=== PATIENT | male | born 1955 | race Caucasian/White ===

== ENCOUNTER 2022-07-24 16:05 | Emergency (ER) | payer MEDICARE, SELFPAY ==
[2022-07-24] VITALS (10 sets, daily range): BP systolic 170–179; BP diastolic 93–105; PULSE 60–82; RESP 16–22; TEMP 36.5–36.6; O2SAT 96–100; BMI 20.7
--- NOTE | 2022-07-24 16:23 | ECG_ITS ---
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 Measurements Intervals Ages [place] Rate: 71 P: 79 OK: 145 QRS: -56 QRSD: 111 T: 67 QT: 458 QTc: 498 Interpretive Statements SINUS RHYTHM WITH SINUS ARRHYTHMIA POSSIBLE LEFT ATRIAL ENLARGEMENT [-0.1mV P-WAVE IN V1/V2] INCOMPLETE RIGHT BUNDLE BRANCH BLOCK [90+ ms QRS DURATION, TERMINAL R IN V1/V2, 40+ ms S IN I/aVL/V4/V5/V6] LEFT ANTERIOR FASCICULAR BLOCK [QRS AXIS <= -45, QR IN I, RS IN II] PROBABLE ANTEROLATERAL MYOCARDIAL INFARCTION , OF INDETERMINATE AGE [35 ms Q WAVE IN I/aVL/V3-V6] No previous ECG available for comparison Electronically Signed On 07-24-2022 21:31:05 CDT by Paul Owens M.D. [id number] lima
--- NOTE | 2022-07-24 16:25 | ED_ITS ---
HPI - General Adult General: Chief complaint: Abdominal Pain Stated complaint: Stomach pains, blacking out Time Seen by Provider: 07/24/22 16:23 History of Present Illness: Patient is a 67-year-old male with no significant past medical history presenting to the emergency room with significant onset of midepigastric/periumbilical abdominal pain for the last hour. Patient was reportedly writhing upon waking up with significant pain. Patient's family drove him to the emergency room. Patient denies have any nausea/vomiting fever/chills, diarrhea melena hematochezia. Patient had 1 episode of spit up and was coughing up clear phlegm. Family denies any fever/cough, runny nose/so re throat. Onset: 1hr ago Duration:1 hr Location: home Severity:moderate/severe Associated symptoms: Deny chest pain, dyspnea, nausea, rash, palpitations or vomiting Review of Systems Const: Denies: fever(s) or chills Eyes: Denies: change in vision ENMT: Denies: mouth pain Card: Denies: chest pain or palpitations Resp: Denies: dyspnea or non-productive cough GI: Reports: abdominal pain; Denies: nausea, vomiting or diarrhea : Denies: dysuria Musc: Denies: extremity pain Skin/Breast: Denies: rash or new lesions Neuro: Denies: weakness in extremities Psych: Reports: other (Normal mood) Guido/Lymph: Denies: easy bruising [facility] ED PFSH: Medical History Abdominal pain Social History Smoking and tobacco status: current every day smoker Alcohol intake: never Substance/Drug Use: current Substance/Drug use type: Marijuana Physical Exam Const: COMMON NORMALS: alert HENMT: COMMON NORMALS: atraumatic HEAD & SCALP: atraumatic MOUTH: moist mucous membranes not abnormal Eye: COMMON NORMALS: EOMs intact bilaterally and conjunctivae normal CONJUNCTIVA: Yes conjunctivae normal Neck/C-Spine: COMMON NORMALS: full ROM and supple Resp: COMMON NORMALS: normal respiratory effort and clear to auscultation bilaterally AUSCULTATION: clear to auscultation bilaterally Cardio: COMMON NORMALS: regular rate RATE: regular rate GI: COMMON NORMALS: Soft to palpation PALPATION: Yes Soft to palpation OTHER: +diffuse abd TTP. +Voluntary guarding. NO guarding rebound, guarding, rigidity. No CVA tenderness to percussion. Neg Lee/Neg McBurney's point tenderness, no suprabupic tenderness to palpation. Extremity: COMMON NORMALS: full ROM Neuro: SENSORIUM/ORIENTATION: Yes alert MOTOR EXAM: No Abnormal motor strength present and Other motor observations present (no focal motor deficits) Psych: COMMON NORMALS: speech normal SPEECH: Yes normal speech MOOD & AFFECT: Yes euthymic mood Course Vital Signs: Vital signs: Vital Signs Temperature 97.9 F 07/24/22 21:00 Pulse Rate 64 07/24/22 21:00 Respiratory Rate 18 07/24/22 21:00 Blood Pressure 174/93 07/24/22 21:00 Pulse Oximetry 97 07/24/22 21:00 Oxygen Delivery Me thod 07/24/22 20:46 MDM - General Adult Medical Decision Making Patient is a 67-year-old male with no significant past medical history presenting to the emergency room with significant onset of midepigastric/periumbilical abdominal pain for the last hour. Patient was reportedly writhing upon waking up with significant pain. On physical exam, pat ient is hemodynamically stable. Patient has diffuse abdominal tenderness palpation. +voluntary guarding. No involuntary guarding or rebound tenderness. Patient's white count 23.3. Patient has mild anion gap. Lactic acid of 6. CT abdomen pelvis showed extensive inflammatory changes in the small bowel and in the mid to lower abdominal associate with mesenteric edema/inflammation. There is no signs of free air. Patient received 30 cc/kg of IVF and Zosyn in the ER. I discussed case immediately with Dr. Jacinto Pain appears to be controlled with multiple doses of opiate medication. Dr. Snyder recommended at this time to transfer patient for close monitoring of this could be inflammatory bowel disease vs early ischemic findings. Case was discussed with Dr. Jacob from [facility] ICU who agreed with the transfer to [facility] for GI evaluation and possible vascular/gen surgery i nvolvement. Disposition: Transfer to outside hospital Lab Data : 07/24/22 16:31 07/24/22 16:31 Radiology Impressions Chest X-Ray 07/24/22 16:23 IMPRESSION: 1. No acute cardiopulmonary process. 2. No free intraperitoneal air on chest radiograph. CT scan of the abdomen/pelvis may be obtained for further evaluation as clinically indicated.. 3. Incidental/nonacute findings are listed in the report. Abdomen/Pelvis CTA 07/24/22 16:50 IMPRESSION: 1. Extensive inflammatory change involving the small bowel in the mid and lower abdomen with wall thickening and associated mesenteric edema/inflammation. No pneumatosis. Findings are suspicious for enteritis of ischemic, inflammatory, or infectious nature. Recommend clinical correlation. 2. Atherosclerotic disease. 50% stenosis in the proximal right and left internal iliac arteries. No occlusion, thrombosis, extravasation, dissection, or aneurysm. 3. 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 4. Incidental/nonacute findings are listed in the report. ADDENDUM: 07/24/22 1851 Please note the addendum to the original report: No evidence for arterial occlusions in the abdomen or pelvis. Evaluation of the veins is limited however due to the phase of contrast enhancement. THIS REPORT CONTAINS FINDINGS THAT MAY BE CRITICAL TO PATIENT CARE. The findings were verbally communicated via telephone conference with KUSHAL Gutierrez at 6:49 PM CDT on 07/24/2022. The findings were acknowledged and understood. Laboratory Results WBC 23.3 10^3/uL (4.0-10.0) H 07/24/22 16:31 RBC 4.22 10^6/uL (4.1-5.3) 07/24/22 16:31 Hgb 14.3 g/dL (11.7-16.6) 07/24/22 16:31 Hct 41.9 % (42.0-52.0) L 07/24/22 16:31 MCV 99.3 fl (80-94) H 07/24/22 16:31 MCH 33.9 pg (28.0-34.0) 07/24/22 16: MCHC 34.1 g/dL (30.0-36.0) 07/24/22 16: RDW 13.2 % (12.1-15.1) 07/24/22 16:31 Plt Count 298 10^3/cmm (130-400) 07/24/22 16:31 MPV 9.9 fL (7.4-10.4) 07/24/22 16:31 Neut % (Auto) 76.4 % 07/24/22 16:31 Lymph % (Auto) 14.6 % 07/24/22 16:31 Curry % (Auto) 6.7 % 07/24/22 16:31 Eos % (Auto) 0.8 % 07/24/22 16:31 Baso % (Auto) 0.6 % 07/24/22 16:31 Neut # (Auto) 17.81 10^3/uL (1.8-7.7) H 07/24/22 16:31 Lymph # (Auto) 3.4 10^3/uL (0.8-4.8) 07/24/22 16:31 Curry # (Auto) 1.6 10^3/uL (0.2-0.9) H 07/24/22 16:31 Eos # (Auto) 0.2 10^3/uL (0.0-0.8) 07/24/22 16:31 Baso # (Auto) 0.2 10^3/uL (0.0-0.1) H 07/24/22 16:31 Nucleated RBC % (auto) 0 % 07/24/22 16:31 Nucleated RBCs # 0.0 /100WBC 07/24/22 16:31 Sodium 139 mmol/L (136-145) 07/24/22 16:31 Potassium 3.5 mmol/L (3.5-5.1) 07/24/22 16:31 Chloride 98 mmol/L (98-107) 07/24/22 16:31 Carbon Dioxide 19 mmol/L (22-29) L 07/24/22 16:31 Anion Gap 25.5 (5-19) H 07/24/22 16:31 BUN 18 mg/dL (8-23) 07/24/22 16:31 Creatinine 0.8 mg/dL (0.7-1.2) 07/24/22 16:31 GFR Calculation 96.7 mL/min (90-130) 07/24/22 16:31 Glucose 175 mg/dL (65-115) H 07/24/22 16:31 Calculated Osmolality 294 mOsm/kg (285-295) 07/24/22 16:31 Lactate 2.1 mmol/L (0.5-2.2) 07/24/22 19:33 Calcium 9.7 mg/dL (8.5-10.5) 07/24/22 16:31 Total Bilirubin 0.3 mg/dL (0.15-1.2) 07/24/22 16:31 AST 21 U/L (0-40) 07/24/22 16:31 ALT 17 U/L (0-41) 07/24/22 16:31 Alkaline Phosphatase 76 U/L (40-130) 07/24/22 16:31 Troponin T Baseline 9 ng/L (0-15) 07/24/22 16:31 Troponin T 120 Minute 8.98 ng/L (0-15) 07/24/22 18:09 Delta Troponin T -0.02 ABS# (0-10) L 07/24/22 18:09 Total Protein 7.2 g/dL (6.6-8.7) 07/24/22 16:31 Albumin 4.7 g/dL (3.5-5.2) 07/24/22 16:31 Globulin 2.5 g/dL (1.3-4.6) 07/24/22 16:31 Lipase 14 U/L (13-60) 07/24/22 16:31 Urine Color Yellow (Yellow) 07/24/22 18:15 Urine Appearance Clear (CLEAR) 07/24/22 18:15 Urine pH 7 (5-7) 07/24/22 18:15 Ur Specific [place] 1.015 (1.005-1.030) 07/24/22 18:15 Urine Protein Neg (Negative) 07/24/22 18:15 Urine Glucose (UA) Trace (Normal) H 07/24/22 18:15 Urine Ketones 2+ (Negative) H 07/24/22 18:15 Urine Blood Neg (Negative) 07/24/22 18:15 Urine Nitrate Negative (Negative) 07/24/22 18:15 Urine Bilirubin Neg (Negative) 07/24/22 18:15 Urine Urobilinogen Norm mg/dL (Negative) 07/24/22 18:15 Ur Leukocyte Esterase Negative (Negative) 07/24/22 18:15 Imaging Data Other Imaging: Radiologist's impression: [address] [place] [address] CT Scan Report Signed with Addenda Patient: Sukh Jang Miguel Unit #: [id number] : 1955 Age/Sex: 67 / M ADM Date: 07/24/22 Loc: ER Room/Bed: Attending Dr: Ordering Provider/Ordering MD: Kushal Chapa MD Date of Service: 07/24/22 Procedure(s): CT angio abdomen pelvis 51685 Accession Number(s): [id number] Report Number: [id number]/CT angio abdomen pelvis 60658 Please note the addendum to the original report:? No evidence for arterial occlusions in the abdomen or pelvis. Evaluation of the veins is limited however due to the phase of contrast enhancement. ? THIS REPORT CONTAINS FINDINGS THAT MAY BE CRITICAL TO PATIENT CARE. The findings were verbally communicated via telephone conference with KUSHAL Gutierrez at 6:49 PM CDT on 07/24/2022. The findings were acknowledged and understood. ? Addendum Dictated By: ?Lindsey Mensah MD Addendum Signed By: ?Lindsey Mensah MD Signed Date/Time: 07/24/221850 Addendum Cosigned By: ? PROCEDURE INFORMATION: Exam: CTA Abdomen and Pelvis With Contrast Exam date and time: 07/24/2022 5:44 PM Age: 67 years old Clinical indication: Abdominal pain; Acute; Additional info: Abd pain, 10 out of 10 with shaking and near syncope spells TECHNIQUE: Imaging protocol: Computed tomographic angiography of the abdomen and pelvis with contrast. 3D rendering (Not supervised by radiologist): MIP and/or 3D reconstructed images were created by the technologist. Radiation optimization: All CT scans at this facility use at least one of these dose optimization techniques: automated exposure control; mA and/or kV adjustment per patient size (includes targeted exams where dose is matched to clinical indication); or iterative reconstruction. Contrast material: OMNIPAQUE 350; Contrast volume: 80 ml; Contrast route: INTRAVENOUS (IV);? COMPARISON: CR (CHEST, ) 07/24/2022 5:02 PM RADIATION DOSE METRICS: Total DLP (mGy-cm): 439.65 FINDINGS: Lungs: Visualized lungs are clear. Pleural spaces: No pleural effusion. Heart: Stable mild enlargement of the visualized portions of the heart. Aorta: Moderate to severe calcified and mild noncalcified plaque. No occlusion, thrombosis, stenosis, extravasation, dissection, or aneurysm. Celiac trunk and mesenteric arteries: Mild calcified plaque. No occlusion, thrombosis, stenosis, extravasation, dissection, or aneurysm. Renal arteries: Mild calcified plaque. No occlusion, thrombosis, stenosis, extravasation, dissection, or aneurysm. Right iliac arteries: Moderate to severe calcified and noncalcified plaque. 50% stenosis in the proximal right internal iliac artery. No occlusion, thrombosis, extravasation, dissection, or aneurysm. Left iliac arteries: Moderate to severe calcified and noncalcified plaque. 50% stenosis in the proximal right internal iliac artery. No occlusion, thrombosis, extravasation, dissection, or aneurysm. Liver: Simple cyst in the left lobe of the liver measuring 2.3 cm (series 4, image 34). Gallbladder and bile ducts: The gallbladder is unremarkable. No biliary ductal dilatation. Pancreas: The pancreas is unremarkable. No pancreatic ductal dilatation. Spleen: Heterogenous enhancement of the spleen, likely due to phase of contrast enhancement. Adrenal glands: The right and left adrenal glands are unremarkable. Kidneys and ureters: The right kidney is unremarkable. Simple cyst in the left kidney measuring 1.5 cm. The right and left ureters are unremarkable. Stomach and bowel: Moderate gastric distention with a large air-fluid level in the stomach. Extensive inflammatory change involving the small bowel in the mid and lower abdomen with wall thickening and associated mesenteric edema/inflammation. No pneumatosis. Appendix: Appendix not definitely visualized. No inflammatory changes in the pericecal region however. Intraperitoneal space: Small volume ascites. No free intraperitoneal air. No loculated fluid collections to suggest an abscess. Lymph nodes: No lymphadenopathy. Urinary bladder: The bladder is unremarkable. Reproductive: The prostate gland is mildly enlarged. Nonspecific parenchymal calcifications in the prostate gland. Bones/joints: Degenerative changes in the spine, sacroiliac joints, and hips. Soft tissues: No acute abnormality in the extra-abdominal soft tissues. CT/CT angio abdomen pelvis 94694 IMPRESSION: 1. Extensive inflammatory change involving the small bowel in the mid and lower abdomen with wall thickening and associated mesenteric edema/inflammation. No pneumatosis. Findings are suspicious for enteritis of ischemic, inflammatory, or infectious nature. Recommend clinical correlation. 2. Atherosclerotic disease. 50% stenosis in the proximal right and left internal iliac arteries. No occlusion, thrombosis, extravasation, dissection, or aneurysm. 3. 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 4. Incidental/nonacute findings are listed in the report. ? Dictated By: Lindsey Mensah MD Signed By: Lindsey Mensah MD Signed Date/Time: 07/24/22 1820 DD/ [address] [address] XRay Report Signed Patient: Sukh Jang Unit #: [id number] : 1955 Age/Sex: 67 / M ADM Date: 07/24/22 Loc: ER Room/Bed: Attending Dr: Ordering Provider/Ordering MD: Kushal Chapa MD Date of Service: 07/24/22 Procedure(s): XR chest 1V portable [id number] Accession Number(s): [id number] Report Number: [id number] PROCEDURE INFORMATION: Exam: XR Chest Exam date and time: 07/24/2022 5:02 PM Age: 67 years old Clinical indication: Other: Upper abdominal pain; Evaluate for free air; Additional info: Upper abd pain, eval free iar TECHNIQUE: Imaging protocol: Radiologic exam of the chest. Views: 1 view. COMPARISON: No relevant prior studies available. FINDINGS: Lungs: Lungs are clear bilaterally. Pleural spaces: No pleural effusion. No pneumothorax. Heart/Mediastinum: The cardiac silhouette is mildly enlarged. Mediastinal contours are unremarkable. Vasculature: Vascular calcifications in the aorta. Bones/joints: Unremarkable for age. Intraperitoneal space: No free intraperitoneal air on chest radiograph. XR/XR chest 1V portable 91812 IMPRESSION: 1. No acute cardiopulmonary process. 2. No free intraperitoneal air on chest radiograph. CT scan of the abdomen/pelvis may be obtained for further evaluation as clinically indicated.. 3. Incidental/nonacute findings are listed in the report. ? Dictated By: Lindsey Mensah MD Signed By: Lindsey Mensah MD Signed Date/Time: 07/24/22 1729 DD/ 1702 Discharge Plan Discharge Patient Disposition: Other Inst w Plan Readm Condition: Stable Prescriptions: No Action chlorzoxazone 500 mg tablet 500 mg PO QID PRN (Reason: Pain) Aspir-81 81 mg Tablet,Delayed Release (Dr/Ec) 81 mg PO DAILY trazodone 100 mg tablet 100 mg PO BEDTIME mirtazapine 15 mg tablet 15 mg PO DAILY Men's 50 Plus Daily Formula 400-20-370 mcg Tablet 1 tab PO DAILY Referrals: Natan Arce MD [Primary Care Provider] - Coding Level of Care Code ED Instructional Support Specialist for Chg Fwd Exam Comprehensive
[2022-07-24 16:34] LABS: Basophils # 0.2 10^3/uL (0.0-0.1); Basophils % 0.6 %; Eosinophils # 0.2 10^3/uL (0.0-0.8); Eosinophils % 0.8 %; Hematocrit 41.9 % (42.0-52.0); Hemoglobin 14.3 g/dL (11.7-16.6); Lymphocytes # 3.4 10^3/uL (0.8-4.8); Lymphocytes % 14.6 %; Mean Corpuscular HGB Conc 34.1 g/dL (30.0-36.0); Mean Corpuscular Hemoglobin 33.9 pg (28.0-34.0); Mean Corpuscular Volume 99.3 fl (80-94); Mean Platelet Volume 9.9 fL (7.4-10.4); Monocytes # 1.6 10^3/uL (0.2-0.9); Monocytes % 6.7 %; Neutrophils # 17.81 10^3/uL (1.8-7.7); Neutrophils % 76.4 %; Nucleated Red Blood Cells % 0 %; Platelet Count 298 10^3/cmm (130-400); Red Blood Count 4.22 10^6/uL (4.1-5.3); Red Cell Distribution Width 13.2 % (12.1-15.1); White Blood Count 23.3 10^3/uL (4.0-10.0)
--- NOTE | 2022-07-24 16:50 | CTR_ITS ---
PROCEDURE INFORMATION: Exam: CTA Abdomen and Pelvis With Contrast Exam date and time: 07/24/2022 5:44 PM Age: 67 years old Clinical indication: Abdominal pain; Acute; Additional info: Abd pain, 10 out of 10 with shaking and near syncope spells TECHNIQUE: Imaging protocol: Computed tomographic angiography of the abdomen and pelvis with contrast. 3D rendering (Not supervised by radiologist): MIP and/or 3D reconstructed images were created by the technologist. Radiation optimization: All CT scans at this facility use at least one of these dose optimization techniques: automated exposure control; mA and/or kV adjustment per patient size (includes targeted exams where dose is matched to clinical indication); or iterative reconstruction. Contrast material: OMNIPAQUE 350; Contrast volume: 80 ml; Contrast route: INTRAVENOUS (IV); COMPARISON: CR (CHEST, ) 07/24/2022 5:02 PM RADIATION DOSE METRICS: Total DLP (mGy-cm): 439.65 FINDINGS: Lungs: Visualized lungs are clear. Pleural spaces: No pleural effusion. Heart: Stable mild enlargement of the visualized portions of the heart. Aorta: Moderate to severe calcified and mild noncalcified plaque. No occlusion, thrombosis, stenosis, extravasation, dissection, or aneurysm. Celiac trunk and mesenteric arteries: Mild calcified plaque. No occlusion, thrombosis, stenosis, extravasation, dissection, or aneurysm. Renal arteries: Mild calcified plaque. No occlusion, thrombosis, stenosis, extravasation, dissection, or aneurysm. Right iliac arteries: Moderate to severe calcified and noncalcified plaque. 50% stenosis in the proximal right internal iliac artery. No occlusion, thrombosis, extravasation, dissection, or aneurysm. Left iliac arteries: Moderate to severe calcified and noncalcified plaque. 50% stenosis in the proximal right internal iliac artery. No occlusion, thrombosis, extravasation, dissection, or aneurysm. Liver: Simple cyst in the left lobe of the liver measuring 2.3 cm (series 4, image 34). Gallbladder and bile ducts: The gallbladder is unremarkable. No biliary ductal dilatation. Pancreas: The pancreas is unremarkable. No pancreatic ductal dilatation. Spleen: Heterogenous enhancement of the spleen, likely due to phase of contrast enhancement. Adrenal glands: The right and left adrenal glands are unremarkable. Kidneys and ureters: The right kidney is unremarkable. Simple cyst in the left kidney measuring 1.5 cm. The right and left ureters are unremarkable. Stomach and bowel: Moderate gastric distention with a large air-fluid level in the stomach. Extensive inflammatory change involving the small bowel in the mid and lower abdomen with wall thickening and associated mesenteric edema/inflammation. No pneumatosis. Appendix: Appendix not definitely visualized. No inflammatory changes in the pericecal region however. Intraperitoneal space: Small volume ascites. No free intraperitoneal air. No loculated fluid collections to suggest an abscess. Lymph nodes: No lymphadenopathy. Urinary bladder: The bladder is unremarkable. Reproductive: The prostate gland is mildly enlarged. Nonspecific parenchymal calcifications in the prostate gland. Bones/joints: Degenerative changes in the spine, sacroiliac joints, and hips. Soft tissues: No acute abnormality in the extra-abdominal soft tissues. CT/CT angio abdomen pelvis 13285 IMPRESSION: 1. Extensive inflammatory change involving the small bowel in the mid and lower abdomen with wall thickening and associated mesenteric edema/inflammation. No pneumatosis. Findings are suspicious for enteritis of ischemic, inflammatory, or infectious nature. Recommend clinical correlation. 2. Atherosclerotic disease. 50% stenosis in the proximal right and left internal iliac arteries. No occlusion, thrombosis, extravasation, dissection, or aneurysm. 3. 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 4. Incidental/nonacute findings are listed in the report.
[2022-07-24 17:03] LABS: Lactate (Lactic Acid level) 6.5 mmol/L (0.5-2.2)
[2022-07-24 17:04] LABS: Troponin(5th) Baseline 9 ng/L (0-15)
[2022-07-24 17:06] LABS: Alanine Aminotransferase 17 U/L (0-41); Albumin Level 4.7 g/dL (3.5-5.2); Alkaline Phosphatase 76 U/L (40-130); Aspartate Amino Transferase 21 U/L (0-40); Blood Urea Nitrogen 18 mg/dL (8-23); Calcium 9.7 mg/dL (8.5-10.5); Carbon Dioxide 19 mmol/L (22-29); Chloride 98 mmol/L (98-107); Creatinine Clr Calc Pharmacy 90.0698; Globulin 2.5 g/dL (1.3-4.6); Glomerular Filtration Rate 96.7 mL/min (90-130); Glucose 175 mg/dL (65-115); Lipase 14 U/L (13-60); Osmolality Calculated 294 mOsm/kg (285-295); Sodium 139 mmol/L (136-145); Total Bilirubin 0.3 mg/dL (0.15-1.2); Total Protein 7.2 g/dL (6.6-8.7)
[2022-07-24 17:09] LABS: Anion Gap 25.5 (5-19); Potassium 3.5 mmol/L (3.5-5.1)
[2022-07-24] MEDS: morphine 4 mg/mL SDV 1 mL 2 MG IVP (17:09)
[2022-07-24] MEDS: sodium chloride 0.9% 1,000 ML 999 ML IV ×2 (17:10→19:21)
--- NOTE | 2022-07-24 18:23 | ECG_ITS ---
[facility] Test Date: 2022-07-24 Pat Name: Sukh Jang Department: Room: Gender: Male Verification Rep: : 1955 Requested By: Kushal Chapa Order Number: [id number] Bianca MD: Paul Owens M.D. Measurements Intervals [place] Rate: 59 P: 74 OH: 143 QRS: -59 QRSD: 120 T: 49 QT: 493 QTc: 492 Interpretive Statements SINUS BRADYCARDIA POSSIBLE LEFT ATRIAL ENLARGEMENT [-0.1mV P-WAVE IN V1/V2] RIGHT BUNDLE BRANCH BLOCK [120+ ms QRS DURATION, UPRIGHT V1, 40+ ms S IN I/aVL/V4/V5/V6] LEFT ANTERIOR FASCICULAR BLOCK [QRS AXIS <= -45, QR IN I, RS IN II] POSSIBLE ANTERIOR MYOCARDIAL INFARCTION , OF INDETERMINATE AGE [30 ms Q WAVE IN V3/V4, OR R < 0.2 mV IN V4] Compared to ECG 07/24/2022 16:27:04 Right bundle-branch block now present Sinus rhythm no longer present Sinus arrhythmia no longer present Incomplete right bundle-branch block no longer present Myocardial infarct finding still present Electronically Signed On 07-24-2022 21:31:10 CDT by Paul Owens M.D. [id number]
[2022-07-24 18:28] LABS: Add Urine Microscopic? NO; Charge for UA Resulting for Rev
[2022-07-24] MEDS: morphine 4 mg/mL SDV 1 mL IVP (18:29)
[2022-07-24 18:31] LABS: Troponin 5 2HR 8.98 ng/L (0-15)
[2022-07-24 18:32] LABS: Bilirubin Urine Neg (Negative); Blood Urine Neg (Negative); Glucose Urine UA Trace (Normal); Ketones Urine 2+ (Negative); Leukocyte Esterase Urine Negative (Negative); Nitrate Urine Negative (Negative); Protein Urine Neg (Negative); Specific Gravity, Urine 1.015 (1.005-1.030); Urine Appearance Clear (CLEAR); Urine Color Yellow (Yellow); Urobilinogen Urine Norm (Negative); pH Urine 7 (5-7)
[2022-07-24 18:33] LABS: Troponin 5 2HR Delta -0.02 ABS# (0-10)
[2022-07-24] MEDS: piperacillin-tazobactam 4.5 GM in sodium chloride 0.9% (plus) 50 ML IV (18:40)
[2022-07-24] MEDS: HYDROmorphone 1 mg/mL INJ 1 mL 0.5 MG IVP (19:19)
[2022-07-24] MEDS: ondansetron 2 mg/ML SDV 2 mL 4 MG IVP (19:34)
[2022-07-24 19:54] LABS: Lactate (Lactic Acid level) 2.1 mmol/L (0.5-2.2)
[2022-07-24] MEDS: HYDROmorphone 1 mg/mL INJ 1 mL IVP (20:45)
[2022-07-24] MEDS: fentaNYL 50 mcg/mL INJ 2mL 100 MCG IVP (22:12)
== END 2022-07-24 22:57 | disposition other institution, planned readmission (95) ==
PROVIDERS: Emergency Provider Emergency Medicine; PCP Family Medicine
DX: R10.9 Unspecified abdominal pain (principal); Z79.82 Long term (current) use of aspirin; F17.210 Nicotine dependence, cigarettes, uncomplicated
CPT/HCPCS: 71045; 74174; 80053; 81003; 83605; 83690; 84484; 85025; 93005; 96365; 96375; 96376; 99285; J1170; J2270; J2405; J2543; J3010; J7030; Q9967

== ENCOUNTER 2022-11-20 06:49 | Outpatient (CLI) | payer MEDICARE, SELFPAY ==
--- NOTE | 2022-11-20 07:13 | MR_ITS ---
WS: [id number] MRI BRAIN WITH AND WITHOUT CONTRAST HISTORY: MEMORY LOSS COMPARISON: None available. TECHNIQUE: Multiplanar imaging performed through the brain with MultiHance 13 ml's IV. No acute infarcts are seen. Petersen-white matter differentiation is well preserved. Mild atrophy and mil d, very minimal small vessel ischemic disease. No prior infarct. No susceptibility artifacts or prior lacunar infarcts. Ventricles and extra-axial spaces are normal. Clivus and pituitary gland are normal. Visualized posterior fossa and brainstem are also normal. Postcontrast images are negative for masses or vascular malformations. Dural venous sinuses are normal. Paranasal sinuses: Well aerated with no significant disease. Mastoid air cells: Normal. Calvarium and scalp: No calvarial abnormality. There is a soft tissue, nonenhancing mass conforming t o the soft tissue over the LEFT temporal bone measuring 3.8 x 1.5 cm and extending over a length of 4 .7 cm. This is just superficial to the LEFT parotid gland and does not enhance. Increased signal on t he T2 sequences and increased on the T1 weighted sequences. This does suppress on some of the fat sup pressed images. Benign in appearance. MR/MR head wo/w con [id number] IMPRESSION: 1. No acute hemorrhage. No infarct. 2. Very minimal cerebral atrophy. 3. No enhancing masses. 4. There is a nonenhancing very superficial soft tissue mass over the LEFT tem poral bone. Probably representing a cyst with increased protein content or jakob gn fatty tumor. This can be further evaluated by ultrasound if this is a new fi nding. This may have been present for a long time.
[2022-11-20] MEDS: gadobenate dimeglumine 20 mL vial IV (08:31)
== END 2022-11-20 06:50 | disposition home or self-care (01) ==
LOC: RAD 06:51
PROVIDERS: PCP Family Medicine; Visit Provider Family Medicine
DX: R41.3 Other amnesia (principal)
CPT/HCPCS: 70553; A9577

== ENCOUNTER 2025-04-09 09:46 | Outpatient (CLI) | payer MEDICARE, SELFPAY ==
--- NOTE | 2025-04-09 09:53 | CT_ITS ---
WS: [id number] LDCT LUNG CANCER SCREENING HISTORY: NICOTINE DEPENDENCE,CIGARETTES TECHNIQUE: Axial imaging performed from the apices to 1 cm below the costophrenic angles. Coronal and sagittal reformats are submitted with axial MIP series. All CT scans at [facility] use at least one of these dose optimization techniques: automated exposure control; mA and/or kV adjustment per patient size (includes targeted exams where dose is matched to clinical indication); or iterative reconstruction. DLP: 58.77 mGy.cm DIvol: Mean CTDIvol: 0.80 (mGy) COMPARISON: None available. Diagnostic quality: Satisfactory Lungs: Moderate pulmonary hyperexpansion. Biapical pleural fibrosis and scarring. No pulmonary mass or nodule. No pneumonia. No endobronchial lesions. Heart: Very mild cardiomegaly.. Other findings: Mild atherosclerosis aorta. Pulmonary artery is very slightly dilated. Scattered coronary artery calcifications. Normal RIGHT adrenal gland. Mild thickening of the LEFT adrenal gland. Hepatic cyst LEFT lobe, 2.[address]/CT lung screening [id number] IMPRESSION: LUNG-RADS: 1-Negative FOLLOW UP: 12 Month: Continue annual screening with LDCT OTHER FINDINGS (S MODIFIER): None.
== END 2025-04-09 09:47 | disposition home or self-care (01) ==
PROVIDERS: PCP Family Medicine; Visit Provider Family Medicine
DX: Z12.2 Encounter for screening for malignant neoplasm of respiratory organs (principal); F17.210 Nicotine dependence, cigarettes, uncomplicated; R91.8 Other nonspecific abnormal finding of lung field; J84.10 Pulmonary fibrosis, unspecified; J98.4 Other disorders of lung; I51.7 Cardiomegaly; I70.0 Atherosclerosis of aorta; I25.10 Atherosclerotic heart disease of native coronary artery without angina pectoris; E27.8 Other specified disorders of adrenal gland; K76.89 Other specified diseases of liver
CPT/HCPCS: 71271